=== PATIENT | male | born 1980 | race Caucasian/White ===

== ENCOUNTER 2021-03-26 16:12 | Emergency (ER) | payer BC, SELFPAY ==
[2021-03-26 16:13] VITALS: BP 153/117; PULSE 96; RESP 16; TEMP 36.6; O2SAT 94; BMI 23.8
[2021-03-26 17:29] VITALS: BMI 23.8
[2021-03-26 17:33] VITALS: BP 153/100; PULSE 87; RESP 16; O2SAT 97
--- NOTE | 2021-03-26 17:38 | ED.RN ---
pt reports to this nurse that sx are intermittent. gets up and goes to work abor 4am and at about 6 he starts getting dizzy with tingling to his lilly legs and feet. 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 pt states im also an alcoholic. so I dont drink enough water
--- NOTE | 2021-03-26 17:44 | EKG12_ITS ---
Test Reason : Blood Pressure : / mmHG Vent. Rate : 078 BPM Atrial Rate : 078 BPM P-R Int : 140 ms QRS Dur : 084 ms QT Int : 402 ms P-R-T Axes : 036 032 058 degrees QTc Int : 458 ms Normal sinus rhythm Normal ECG Confirmed by DANIELA TOMPKINS, AFUA ([id number]), copy editor KATLIN WARE ([id number]) on 03/28/2021 1:56:56 PM Referred By: KIN Confirmed By:AFUA SUAREZ MD
--- NOTE | 2021-03-26 17:45 | EX.ED.DYSGE1 ---
HPI History of Present Illness Chief Complaint: Neuro S/Sx Informant: patient Narrative Narrative: Patient presents with multiple symptoms over the past approximately 7 days. He states that a week ago he got nasal congestion like a cold. He was blowing a lot of mucus from his nose. That lasted for about a day. The next day he noted that at work he would get somewhat lightheaded if he was standing up for more than about 2 or 3 hours. He would also get some tingling of his feet and occasionally legs up to mid gardner area. This was equal side to side. There is no weakness. He does have a slight cough but he is not producing any sputum. He is a smoker. This is not really new or different. He has no chest pain at any time. He has no hemoptysis. He also gets some soreness in his right upper flank area. He thinks this is due to his liver. This has been an ongoing issue. He has a long history of alcoholism. He drinks a 1.75 L wild [place] every 3 days. He actually already has an appointment to go into detox because he knows he needs help. He has had no recent travel surgery immobilization personal family history of DVT or PE. He has not had palpitations with this. Nothing consistently makes this better. It is worse if he stays standing for a long time. PFSH PFSH Medical History ETOH abuse Allergy/AdvReac Type Severity Reaction Status Date / Time No Known Allergies Allergy Verified 03/26/21 16:15 Surgical History no surgical history Social History Smoking Status: Current every day smoker tobacco type: cigarettes ROS ROS ED Constitutional Constitutional ED: Denies chills, fever(s), subjective or sweats Eyes Eyes: Denies blurry vision or change in vision ENT ENT ED: Reports other Details: Nasal congestion now resolved. See history of present illness. Cardiovascular Cardiovascular: Denies chest pain, palpitations or racing heartbeat Respiratory/Chest Respiratory/Chest: Reports cough; Denies dyspnea or sputum Gastrointestinal Gastrointestinal: Reports other Details: Patient has had no nausea vomiting diarrhea abdominal pain or blood in the stool. ; Denies abdominal pain, diarrhea, melena, nausea or vomiting Genitourinary Genitourinary ED: Denies dysuria Musculoskeletal Musculoskeletal: Reports other Details: Patient had a negative Covid test last week. ; Denies myalgias Integumentary Denies rash Neurologic Neurologic: Reports paresthesias; Denies headache(s) or weakness Psychiatric Psychiatric: Reports anxiety; Denies depression Endocrine Endocrinology: Denies polydipsia or polyuria Allergic/Immunologic Allergic/Immunologic ED: Denies mouth swelling, tongue swelling or urticaria EXAM Physical Exam Const Vital Signs: 03/26/21 16:13 03/26/21 17:33 03/26/21 20:25 Temperature 97.8 F Temperature Source Temporal Pulse Rate 96 87 70 Respiratory Rate 16 16 18 Blood Pressure 153/117 H 153/100 H Blood Pressure Mean 129 117 Pulse Ox 94 97 99 Oxygen Delivery Method Room Air Room Air Room Air Positive well nourished and well developed General Appearance ED: well developed and NAD; Negative for cyanotic or diaphoretic HEENT Reports TM's clear and dry mucous membranes HEENT Narrative: Mildly dry. TMs are clear. Minimal fluid behind the eardrums. But they are not red. Tympanic Membrane ED: Yes TM's clear Mouth ED: Yes dry mucous membranes Mouth: dry mucous membranes Eyes PERRL and EOMs intact bilaterally General Eye ED: Negative for scleral icterus Neck no JVD Chest Wall inspection of chest normal and palpation of chest normal Resp normal respiratory effort and clear to auscultation bilaterally Resp Narrative: No pain with deep breath. Lungs sound very clear. He is has no coughing while I am in the room. Effort and Inspection: Negative for pain with movement Auscultation: Negative for rales, rhonchi or wheezes Cardio regular rate and regular rhythm GI normal to inspection, nondistended, normoactive bowel sounds and non-tender GI Narrative: He does complain of some pain toward the right upper quadrant at times. However, his abdomen is quite benign at this time. Palpation: soft Back/Spine no CVA tenderness General Back: CVA tenderness Extremity normal to inspection Extremity Narrative: No edema no cords no tenderness. General Extremety ED: Negative for edema or tenderness General Extremity: Negative for edema Neuro oriented x3 Sensorium / Orientation: alert Psych mental status grossly normal Skin no rashes or lesions noted MDM MDM MDM Narrative Medical decision making narrative: Chest x-ray showed no acute process. Patient's labs show normal CBC. Platelets are little bit low which could be due to the alcohol use. There is no reports of bleeding. Electrolytes show no marked abnormalities. LFTs show mild bump of AST and ALT.troponin is negative. Patient is feeling a bit better now. I think we can get him home. I think detox will be beneficial for him. He already has this set up as an outpatient. Lab Data Attestation: I reviewed the patient's lab results. Labs: Laboratory Results - last 24 hr 03/26/21 03/26/21 17:57 17:57 WBC 5.3 RBC 4.04 L Hgb 14.5 Hct 41.9 MCV 103.7 H MCH 35.9 H MCHC 34.6 RDW Std Deviation 52.3 H RDW Coeff of [place]ayne 13.4 Plt Count 78 L MPV 10.5 Immature Gran % (Auto) 0.600 Neut % (Auto) 45.3 L Lymph % (Auto) 43.3 H [place] % (Auto) 9.8 Eos % (Auto) 0.2 Baso % (Auto) 0.8 Absolute Neuts (auto) 2.4 Absolute Lymphs (auto) 2.30 Nucleated RBC % 0 Platelet Estimate MOD DEC RBC Morphology N CHROM Anisocytosis 1+ Macrocytosis 1+ Sodium 139 Potassium 4.2 Chloride 101 Carbon Dioxide 26.0 Anion Gap 12 BUN 7 Creatinine 0.47 L Estim Creat Clear Calc 229.31 Est GFR (MDRD) Af Amer 255 Est GFR (MDRD) Non-Af 211 BUN/Creatinine Ratio 15.0 Glucose 85 Calcium 9.4 Total Bilirubin 0.80 AST 121 H ALT 112 H Alkaline Phosphatase 87 Troponin I High Sens 8 Total Protein 7.4 Albumin 3.9 Globulin 3.5 Albumin/Globulin Ratio 1.1 Radiography Diagnostic Testing: Clinical Impression(s) from Imaging Studies Chest X-Ray 03/26/21 18:00 IMPRESSION: Normal x-ray examination of the chest. Electronically Signed: Markie Thompson MD at 18:43 EST , Service support , EKG Initial EKG: Comments: EKG done for overall weakness after standing. EKG read by me shows normal sinus rhythm. There is a lot of baseline variation but no evidence of ST elevation or depression. No ectopy. AR interval, QRS duration and QTc are normal. Discharge Plan Triage Chief Complaint: Neuro S/Sx ED Provider: Listerman,Peter Dx/Rx/DC Orders Clinical Impression: Bilateral leg paresthesia, Generalized weakness Instructions: ED Paraesthesias Primary Care Provider: Care Physician,No Primary Referrals: Dina Mariee DO [STAFF PHYSICIAN] - 3-5 Days Care Physician,No Primary [Primary Care Provider] - Disposition Disposition: Home, Self Care
[2021-03-26] MEDS: 0.9% Normal Saline 1,000 ML 1000 ML IV (18:00)
--- NOTE | 2021-03-26 18:00 | RAD_ITS ---
STUDY: X-RAY CHEST REASON FOR EXAM: Male, 40 years old. Fever and cough TECHNIQUE: Single AP portable view of the chest. COMPARISON: None. FINDINGS: EKG leads overlie the chest The lungs are clear and expanded. There is no demonstrated pleural abnormality. Normal size heart. Normal mediastinum and negrito. Normal visualized pulmonary arteries. Normal visualized aortic arch and descending thoracic aorta. Normal visualized thoracic spine. Normal visualized ribs, clavicles, and shoulders. There is no demonstrated abnormality of the visualized soft tissue structures of the upper abdomen. RAD/Chest 1 View (Portable) IMPRESSION: Normal x-ray examination of the chest. Electronically Signed: Markie Thompson MD at 18:43 EST , Service support ,
[2021-03-26 18:25] LABS: Absolute Neutrophil Count 2.4 X10^3/uL (2.0-7.7); Basophil# 0.04 X10^3/uL; Basophil% 0.8 % (0-1); Eosinophil# 0.01 X10^3/uL; Eosinophils% 0.2 % (0-5); Hematocrit 41.9 % (40-54); Hemoglobin 14.5 g/dL (13.0-16.5); Lymphocyte % 43.3 % (19-41); Mean Corp Hgb Conc 34.6 g/dL (32-36); Mean Corpuscular Hgb 35.9 pg (27.0-32.0); Mean Corpuscular Volume 103.7 fL (80-94); Mean Platelet Vol. 10.5 fl (6.2-12.0); Monocyte# 0.52 X10^3/uL; Monocyte% 9.8 % (0-10); NRBC Flagged by Analyzer 0 % (0-5); Neutrophil # 2.41 X10^3/uL (2.7-7.7); Neutrophil % 45.3 % (47-70); POSITIVE COUNT YES; Platelet Count 78 K/mm3 (150-450); RBC Distribution Width CV 13.4 % (11.6-14.6); RBC Distribution Width SD 52.3 fl (35.1-43.9); Red Blood Count 4.04 M/mm3 (4.6-6.2); White Blood Count 5.3 K/mm3 (4.4-11.0)
[2021-03-26 18:39] LABS: ALB/GLOB Ratio 1.1 RATIO (0.9-2.4); AST(SGOT) 121 U/L (15-37); Alanine Aminotransfer ALT/SGPT 112 U/L (16-61); Albumin, Serum 3.9 g/dL (3.2-5.0); Alkaline Phosphatase 87 U/L (45-117); Anion Gap 12 (5-15); BUN 7 mg/dL (7-18); Calcium,Total 9.4 mg/dL (8.5-10.1); Chloride 101 mmol/L (98-107); Creatinine, Serum 0.47 mg/dL (0.70-1.30); EST Glomerular Filtration Rate 211 mL/min (>60); Est Glom Filt Rate - Afr Amer 255 mL/min (>60); Estimated Creatinine Clearance 229.31 ml/min; Globulin 3.5 g/dL (2.2-4.2); Glucose 85 mg/dL (74-106); Potassium 4.2 mmol/L (3.5-5.1); Protein, Total 7.4 g/dL (6.4-8.2); Sodium Level 139 mmol/L (136-145); Troponin-I HS 8 pg/mL (3.0-78.0)
[2021-03-26 18:49] LABS: Differential Indicated SCAN CRITERIA MET
[2021-03-26 18:50] LABS: Anisocytosis 1+; Macrocytosis 1+; Platelet Estimate MOD DEC (ADEQ); Red Cell Morphology N CHROM NORMAL (NORM C&C)
[2021-03-26 20:25] VITALS: PULSE 70; RESP 18; O2SAT 99
== END 2021-03-26 21:18 | disposition home or self-care (01) ==
PROVIDERS: Emergency Provider Emergency Medicine
DX: R20.2 Paresthesia of skin (principal); R53.1 Weakness; F17.210 Nicotine dependence, cigarettes, uncomplicated
CPT/HCPCS: 71045; 80053; 84484; 85025; 93005; 96360; 96361; 99283; A4216

== ENCOUNTER 2022-03-26 20:44 | Emergency (ER) | payer BC, SELFPAY ==
[2022-03-26 20:45] VITALS: BP 144/104; PULSE 121; RESP 15; TEMP 36.7; O2SAT 96; BMI 22.5
--- NOTE | 2022-03-26 22:34 | ED.RN ---
an engorged tick was removed from pt neck. was informed and tick placed in sterile container. lashawn burton [id number]
[2022-03-26 22:48] LABS: Absolute Lymphocyte Count 2.11 X10^3/uL (0.83-4.51); Absolute Neutrophil Count 2.5 X10^3/uL (2.0-7.7); Basophil# 0.03 X10^3/uL; Basophil% 0.6 % (0-1); Eosinophil# 0.02 X10^3/uL; Eosinophils% 0.4 % (0-5); Hematocrit 42.7 % (40-54); Hemoglobin 14.9 g/dL (13.0-16.5); Lymphocyte # 2.11 X10^3/ul (0.83-4.51); Lymphocyte % 40.1 % (19-41); Mean Corp Hgb Conc 34.9 g/dL (32-36); Mean Corpuscular Hgb 35.8 pg (27.0-32.0); Mean Corpuscular Volume 102.6 fL (80-94); Mean Platelet Vol. 11.5 fl (6.2-12.0); Monocyte# 0.64 X10^3/uL; Monocyte% 12.2 % (0-10); NRBC Flagged by Analyzer 0 % (0-5); Neutrophil # 2.45 X10^3/uL (2.7-7.7); Neutrophil % 46.5 % (47-70); POSITIVE COUNT YES; RBC Distribution Width CV 12.9 % (11.6-14.6); RBC Distribution Width SD 49.1 fl (35.1-43.9); Red Blood Count 4.16 M/mm3 (4.6-6.2); White Blood Count 5.3 K/mm3 (4.4-11.0)
[2022-03-26 22:58] LABS: Mucous, Urine 0 SEEN /hpf (<or=2+); Red Blood Cells-Urine 0 SEEN /hpf (0-5); Squamous Epithelial Cells - UA 0 SEEN /hpf (0-5); White Blood Cells 0 SEEN /hpf (0-5)
[2022-03-26] MEDS: Ondansetron 4 MG/2 ML Vial IV (22:59)
[2022-03-26] MEDS: 0.9% Normal Saline 1,000 ML 1000 ML IV (22:59)
[2022-03-26 23:00] LABS: Platelet Count 40 K/mm3 (150-450)
[2022-03-26 23:01] LABS: Differential Indicated SCAN CRITERIA MET
[2022-03-26 23:04] LABS: Color, Urine Yellow (Yellow); Glucose, Dipstick Normal (Normal); Ketone-Dipstick 5 mg/dl (Negative); Leukocyte Esterase-Dipstick Negative /ul (Negative); Nitrite-Dipstick Negative (Negative); Occult Blood-Urine Negative /ul (Negative); Protein-Dipstick 15 mg/dl (Negative); Urine Bilirubin Dipstick Negative (Negative); Urine Clarity Clear (Clear); Urine Urobilinogen 1 mg/dl (Normal); Urine pH 6.5 (5.0 - 8.0)
[2022-03-26 23:06] LABS: ALB/GLOB Ratio 1.1 RATIO (0.9-2.4); AST(SGOT) 175 U/L (15-37); Alanine Aminotransfer ALT/SGPT 183 U/L (16-61); Albumin, Serum 3.9 g/dL (3.2-5.0); Alkaline Phosphatase 93 U/L (45-117); Anion Gap 9 (5-15); BUN 11 mg/dL (7-18); BUN/Creat Ratio 16.5 RATIO (10-20); Calcium,Total 8.9 mg/dL (8.5-10.1); Chloride 100 mmol/L (98-107); Creatinine, Serum 0.67 mg/dL (0.70-1.30); EST Glomerular Filtration Rate 139 mL/min (>60); Est Glom Filt Rate - Afr Amer 169 mL/min (>60); Estimated Creatinine Clearance 154.53 ml/min; Globulin 3.4 g/dL (2.2-4.2); Glucose 108 mg/dL (74-106); Lipase 313 U/L (73-393); Potassium 4.6 mmol/L (3.5-5.1); Protein, Total 7.3 g/dL (6.4-8.2); Sodium Level 139 mmol/L (136-145)
[2022-03-26 23:18] LABS: Differential Comment SCANNED
[2022-03-26 23:19] LABS: Bacteria 1+ /hpf (None Seen)
--- NOTE | 2022-03-27 00:01 | EDS_ITS ---
HPI History of Present Illness Chief Complaint: Nausea/Vomiting Informant: patient and parent Onset/Context/Timing Onset: Days Context: Gradual Onset Timing: Continuous Quality: Nausea and vomiting Location: Abdomen Worsened by: Nothing Relieved by: Nothing Narrative Narrative: Patient presents with nausea and vomiting for the past several days. Patient states that initially he was not able to keep anything down including fluids. Patient admits to drinking alcohol daily. Patient states he drinks 1.75 L of whiskey every 3 days. Patient states that few days ago he was unable to keep that down. Patient felt like he was going through withdrawal at that time. Bird kim states that he has been able to keep down alcohol over the last couple days. Patient denies any hematemesis or coffee-ground emesis. Patient denies any diarrhea, melena, or hematochezia. Patient denies any urinary complaints. Patient denies any abdominal pain. Mother states patient has been sleeping more lately. PFSH PFS Medical History ETOH abuse Smoker Allergy/AdvReac Type Severity Reaction Status Date / Time No Known Allergies Allergy Verified 03/26/22 20:50 Social History (Updated 03/27/22 @ 00:[address] Nathan Anderson, DO) Smoking Status: Current every day smoker tobacco type: cigarettes alcohol intake: current alcohol intake frequency: 3 or more drinks per day Alcohol type: hard liquor details: 1.75 L of whiskey every 3 days ROS ROS ED Constitutional Constitutional ED: Denies chills or fever(s) Eyes Eyes: Denies blurry vision or change in vision ENT ENT ED: Denies rhinorrhea or sore throat Cardiovascular Cardiovascular: Denies chest pain or palpitations Respiratory/Chest Respiratory/Chest: Reports cough and sputum; Denies dyspnea Gastrointestinal Gastrointestinal: Reports nausea and vomiting Genitourinary Genitourinary ED: Denies dysuria or hematuria Musculoskeletal Musculoskeletal: Reports back pain and neck pain Integumentary Denies abscess or rash Neurologic Neurologic: Denies headache(s) or weakness Allergic/Immunologic Allergic/Immunologic ED: Denies mouth swelling or urticaria EXAM Physical Exam Const Vital Signs: 03/26/22 20:45 Temperature 98.1 F Temperature Source Temporal Pulse Rate 121 H Respiratory Rate 15 Blood Pressure 144/104 H Blood Pressure Mean 117 Pulse Ox 96 Oxygen Delivery Method Room Air Positive well nourished and well developed General Appearance ED: well developed and NAD HEENT Reports moist mucous membranes Neck supple and no JVD Resp normal respiratory effort and clear to auscultation bilaterally Cardio regular rate, regular rhythm and no murmurs GI normal to inspection, nondistended, normoactive bowel sounds and non-tender Palpation: soft Extremity normal to inspection General Extremety ED: Negative for edema or tenderness General Extremity: Negative for edema Neuro oriented x3, CN's II-XII intact bilaterally and no sensory deficits noted Sensorium / Orientation: alert Motor Exam: strength 5/5 throughout Psych mental status grossly normal Skin no rashes or lesions noted Skin Narrative: There is a tick noted on the anterior neck. This was easily removed with forceps. There is no rash noted. There is no erythema. MDM MDM MDM Narrative Medical decision making narrative: Patient was given IV fluids and Zofran here. CBC shows a thrombocytopenia of 40. Comprehensive metabolic profile was within normal limits. Lipase was normal. Serum alcohol level was elevated at 365. Urinalysis does not show any evidence of urinary tract infection or hematuria. Patient feels better on reevaluation. Patient was advised of his findings. Patient does not want alcohol detox at this time. Patient was instructed return if he wants alcohol detox. Patient was instructed to follow-up with his primary care physician in 3 to 5 days. Patient was instructed to return if worse in any way. Patient understood and was agreeable with the plan. All questions were answered. Lab Data Attestation: I reviewed the patient's lab results. Labs: Laboratory Results - last 24 hr 03/26/22 03/26/22 03/26/22 22:40 22:40 22:40 WBC 5.3 RBC 4.16 L Hgb 14.9 Hct 42.7 MCV 102.6 H MCH 35.8 H MCHC 34.9 RDW Std Deviation 49.1 H RDW Coeff of [place]ayne 12.9 Plt Count 40 L* MPV 11.5 Immature Gran % (Auto) 0.200 Neut % (Auto) 46.5 L Lymph % (Auto) 40.1 [place] % (Auto) 12.2 H Eos % (Auto) 0.4 Baso % (Auto) 0.6 Absolute Neuts (auto) 2.5 Absolute Lymphs (auto) 2.11 Nucleated RBC % 0 Differential Comment SCANNED Diff Path Review May foll Sodium 139 Potassium 4.6 Chloride 100 Carbon Dioxide 30.0 Anion Gap 9 BUN 11 Creatinine 0.67 L Estim Creat Clear Calc 154.53 Est GFR (MDRD) Af Amer 169 Est GFR (MDRD) Non-Af 139 BUN/Creatinine Ratio 16.5 Glucose 108 H Calcium 8.9 Total Bilirubin 0.60 AST 175 H ALT 183 H Alkaline Phosphatase 93 Total Protein 7.3 Albumin 3.9 Globulin 3.4 Albumin/Globulin Ratio 1.1 Lipase 313 Urine Color Urine Clarity Urine pH Ur Specific [place] Urine Protein Urine Glucose (UA) Urine Ketones Urine Occult Blood Urine Nitrite Urine Bilirubin Urine Urobilinogen Ur Leukocyte Esterase Urine RBC Urine WBC Ur Squamous Epith Cells Urine Bacteria Urine Mucus Ethyl Alcohol 365.0 H* 03/26/22 22:54 WBC RBC Hgb Hct MCV MCH MCHC RDW Std Deviation RDW Coeff of Blayne Plt Count MPV Immature Gran % (Auto) Neut % (Auto) Lymph % (Auto) [place] % (Auto) Eos % (Auto) Baso % (Auto) Absolute Neuts (auto) Absolute Lymphs (auto) Nucleated RBC % Differential Comment Diff Path Review Sodium Potassium Chloride Carbon Dioxide Anion Gap BUN Creatinine Estim Creat Clear Calc Est GFR (MDRD) Af Amer Est GFR (MDRD) Non-Af BUN/Creatinine Ratio Glucose Calcium Total Bilirubin AST ALT Alkaline Phosphatase Total Protein Albumin Globulin Albumin/Globulin Ratio Lipase Urine Color Yellow Urine Clarity Clear Urine pH 6.5 Ur Specific [place] 1.010 Urine Protein 15 H Urine Glucose (UA) Normal Urine Ketones 5 H Urine Occult Blood Negative Urine Nitrite Negative Urine Bilirubin Negative Urine Urobilinogen 1 H Ur Leukocyte Esterase Negative Urine RBC 0 SEEN Urine WBC 0 SEEN Ur Squamous Epith Cells 0 SEEN Urine Bacteria 1+ Urine Mucus 0 SEEN Ethyl Alcohol Discharge Plan Triage Chief Complaint: Nausea/Vomiting ED Provider: Nathan Anderson Dx/Rx/DC Orders Clinical Impression: Alcohol intoxication, Nausea and vomiting, Thrombocytopenia Instructions: ED Alcohol Intoxication, ED Vomiting (Adult) Primary Care Provider: Care Physician,No Primary Referrals: Tosha Michelle MD [Med Staff - [facility]] - 3-5 Days Care Physician,No Primary [Primary Care Provider] - [facility] [Non-Staff] - As Needed Disposition Disposition: Home, Self Care
[2022-03-27 00:18] VITALS: BP 119/75; PULSE 86; RESP 15; O2SAT 95
[2022-03-27 13:03] LABS: Pathologist Review Reviewed
== END 2022-03-27 00:38 | disposition home or self-care (01) ==
PROVIDERS: Emergency Provider Emergency Medicine; Visit Provider Emergency Medicine
DX: R11.2 Nausea with vomiting, unspecified (principal); F10.129 Alcohol abuse with intoxication, unspecified; D69.6 Thrombocytopenia, unspecified; F17.210 Nicotine dependence, cigarettes, uncomplicated
CPT/HCPCS: 80053; 81001; 82077; 83690; 85025; 96361; 96374; 99283; J7030; A4216; J2405

== ENCOUNTER 2022-03-31 15:01 | Inpatient (IN) | payer BC, SELFPAY ==
[2022-03-31 15:02] VITALS: BP 152/109; PULSE 112; RESP 18; TEMP 36.1; O2SAT 96; BMI 22.5
--- NOTE | 2022-03-31 15:18 | EX.ED.DYSGE1 ---
HPI History of Present Illness Chief Complaint: ETOH Intox Informant: patient and parent Narrative Narrative: Patient has been drinking for many years. He drinks a handle of 101 proof wild [place] every 2 to 3 days. He starts shaking probably 6 to 8 hours at the least after his last drink. He denies ever having a seizure. He has not been having nausea and vomiting. He last drank about 1 to 2 hours before coming in. He states he went through detox at home about a year ago but has never been in a detox program. He has never been in a 12-step program. He does not use drugs. He does smoke cigarettes. When he withdraws, he starts with shakes in the hands that move up the arms. He then gets shakes in his neck into his whole body. He has always started drinking again at that point. He states he wants to go through detox because he knows this is hurting him. He denies any specific legal occurrences that have pushed him to this. He denies any medical problems or medications. I do note that on recent labs he had thrombocytopenia which is likely from marrow suppression from the alcohol. PFSH PFS Medical History ETOH abuse Smoker Allergy/AdvReac Type Severity Reaction Status Date / Time No Known Allergies Allergy Verified 03/31/22 15:05 Social History Smoking Status: Current every day smoker tobacco type: cigarettes alcohol intake: current alcohol intake frequency: 3 or more drinks per day Alcohol type: hard liquor details: 1.75 L of whiskey every 3 days ROS ROS ED Constitutional Constitutional ED: Denies fever(s) or subjective Eyes Eyes: Denies change in vision ENT ENT ED: Denies rhinorrhea Cardiovascular Cardiovascular: Denies chest pain or palpitations Respiratory/Chest Respiratory/Chest: Denies cough Gastrointestinal Gastrointestinal: Denies abdominal pain, diarrhea, melena, nausea or vomiting Genitourinary Genitourinary ED: Denies hematuria Musculoskeletal Musculoskeletal: Denies myalgias Integumentary Denies rash Neurologic Neurologic: Reports other Details: Denies any withdrawal symptoms at this time. ; Denies headache(s), paresthesias or weakness Endocrine Endocrinology: Denies polydipsia or polyuria Hematologic/Lymphatic Hematologic/Lymphatic: Denies easy bleeding or easy bruising Allergic/Immunologic Allergic/Immunologic ED: Denies urticaria EXAM Physical Exam Const Vital Signs: 03/31/22 15:02 03/31/22 15:35 Temperature 97 F L 97.8 F Temperature Source Temporal Temporal Pulse Rate 112 H 90 Respiratory Rate 18 14 Blood Pressure 152/109 H Blood Pressure Mean 123 Pulse Ox 96 99 Oxygen Delivery Method Room Air Room Air Positive well nourished and well developed General Appearance ED: well developed and NAD; Negative for cyanotic or diaphoretic HEENT Reports moist mucous membranes Eyes General Eye ED: Negative for scleral icterus Neck no JVD Resp normal respiratory effort and clear to auscultation bilaterally Auscultation: Negative for rhonchi or wheezes Cardio regular rhythm Rate: tachycardic GI normal to inspection, nondistended, normoactive bowel sounds and non-tender GI Narrative: I do not feel an enlarged or tender liver. Back/Spine no CVA tenderness Neuro oriented x3 Neuro Narrative: Patient does have slight slurred voice and appears to be slightly intoxicated. But he is ANO x3. He is a pretty good informant for details. Psych Attitude: No agitated Mood & Affect: Negative for depressed, anxious or tearful Skin no rashes or lesions noted MDM MDM MDM Narrative Medical decision making narrative: Patient's labs show normal hemoglobin. White count is toward the lower end but still within normal. Platelets are low at 43,000 but he has had this before. This is likely marrow suppression from alcohol use. INR is normal. Liver function test show mild elevation of AST and ALT which is expected. Electrolytes are overall normal. Alcohol level is pending but I expect this to be significantly elevated. I discussed case with hospitalist and patient will be admitted. Lab Data Attestation: I reviewed the patient's lab results. Labs: Laboratory Results - last 24 hr 03/31/22 03/31/22 03/31/22 15:27 15:27 15:27 WBC 4.9 RBC 3.95 L Hgb 14.4 Hct 41.1 MCV 104.1 H MCH 36.5 H MCHC 35.0 RDW Std Deviation 50.6 H RDW Coeff of [place]ay[place] 13.1 Plt Count 43 L* MPV 10.4 Immature Gran % (Auto) 0.200 Neut % (Auto) 44.0 L Lymph % (Auto) 42.1 H [place] % (Auto) 12.1 H Eos % (Auto) 0.6 Baso % (Auto) 1.0 Absolute Neuts (auto) 2.2 Absolute Lymphs (auto) 2.06 Nucleated RBC % 0 PT 12.2 INR 0.9 Sodium 142 Potassium 4.1 Chloride 107 Carbon Dioxide 27.0 Anion Gap 8 BUN 6 L Creatinine 0.53 L Estim Creat Clear Calc 195.34 Est GFR (MDRD) Af Amer 218 Est GFR (MDRD) Non-Af 180 BUN/Creatinine Ratio 11.2 Glucose 112 H Calcium 8.7 Total Bilirubin 0.60 AST 151 H ALT 159 H Alkaline Phosphatase 85 Total Protein 7.1 Albumin 3.9 Globulin 3.2 Albumin/Globulin Ratio 1.2 Discharge Plan Triage Chief Complaint: ETOH Intox ED Provider: Keaton Calzada Dx/Rx/DC Orders Clinical Impression: Admitted to alcohol detoxification center, Alcohol intoxication, Thrombocytopenia Primary Care Provider: Care Physician,No Primary Referrals: Care Physician,No Primary [Primary Care Provider] - Disposition Disposition: Acute Care [facility]
[2022-03-31 15:35] VITALS: PULSE 90; RESP 14; TEMP 36.6; O2SAT 99
[2022-03-31 15:40] LABS: Absolute Lymphocyte Count 2.06 X10^3/uL (0.83-4.51); Absolute Neutrophil Count 2.2 X10^3/uL (2.0-7.7); Basophil# 0.05 X10^3/uL; Eosinophil# 0.03 X10^3/uL; Eosinophils% 0.6 % (0-5); Hematocrit 41.1 % (40-54); Hemoglobin 14.4 g/dL (13.0-16.5); Lymphocyte # 2.06 X10^3/ul (0.83-4.51); Lymphocyte % 42.1 % (19-41); Mean Corpuscular Hgb 36.5 pg (27.0-32.0); Mean Corpuscular Volume 104.1 fL (80-94); Mean Platelet Vol. 10.4 fl (6.2-12.0); Monocyte# 0.59 X10^3/uL; Monocyte% 12.1 % (0-10); NRBC Flagged by Analyzer 0 % (0-5); Neutrophil # 2.15 X10^3/uL (2.7-7.7); POSITIVE COUNT YES; RBC Distribution Width CV 13.1 % (11.6-14.6); RBC Distribution Width SD 50.6 fl (35.1-43.9); Red Blood Count 3.95 M/mm3 (4.6-6.2); White Blood Count 4.9 K/mm3 (4.4-11.0)
[2022-03-31 16:04] LABS: ALB/GLOB Ratio 1.2 RATIO (0.9-2.4); AST(SGOT) 151 U/L (15-37); Alanine Aminotransfer ALT/SGPT 159 U/L (16-61); Albumin, Serum 3.9 g/dL (3.2-5.0); Alkaline Phosphatase 85 U/L (45-117); Anion Gap 8 (5-15); BUN 6 mg/dL (7-18); BUN/Creat Ratio 11.2 RATIO (10-20); Calcium,Total 8.7 mg/dL (8.5-10.1); Chloride 107 mmol/L (98-107); Creatinine, Serum 0.53 mg/dL (0.70-1.30); EST Glomerular Filtration Rate 180 mL/min (>60); Est Glom Filt Rate - Afr Amer 218 mL/min (>60); Estimated Creatinine Clearance 195.34 ml/min; Globulin 3.2 g/dL (2.2-4.2); Glucose 112 mg/dL (74-106); Potassium 4.1 mmol/L (3.5-5.1); Protein, Total 7.1 g/dL (6.4-8.2); Sodium Level 142 mmol/L (136-145)
[2022-03-31 16:06] LABS: Differential Indicated SCAN CRITERIA MET; Platelet Count 43 K/mm3 (150-450)
[2022-03-31 16:11] LABS: International Normalized Ratio 0.9; Prothrombin Time (Protime)PT. 12.2 SECONDS (11.7-14.9)
--- NOTE | 2022-03-31 16:25 | NURSING ---
MED SURG JOPPERI ALCOHOL DETOX
[2022-03-31 16:28] LABS: Differential Comment SCANNED; Platelet Estimate MKD DEC (ADEQ)
--- NOTE | 2022-03-31 16:39 | HP.PCM.HOS_ITS ---
HPI - General General Date of Service: 03/31/22 Chief Complaint: Alcohol withdrawal HPI Narrative EVARISTO KING, is a 41 M who presents voluntarily seeking treatment for alcohol withdrawal. Patient's last drink was at 1430 today. Patient drinks a handle whiskey every 2 to 3 days. Since his last drink today, he has been having some tremulousness. Patient did try quitting on his own 1 time few years ago and he had nausea vomiting and diffuse tremors. Patient is not established with any addiction program nor is he reached out to any addiction program prior to coming here. Patient had lab work in the emergency room that showed platelets of 43,000. He does have easy bruising. [facility] Medical History ETOH abuse Smoker Allergy/AdvReac Type Severity Reaction Status Date / Time No Known Allergies Allergy Verified 03/31/22 15:05 Social History Smoking Status: Current every day smoker tobacco type: cigarettes alcohol intake: current alcohol intake frequency: 3 or more drinks per day Alcohol type: hard liquor details: 1.75 L of whiskey every 3 days ROS ROS Narrative All review of systems were negative except as mentioned above in the history of present illness and the other review of systems. Vital Signs Vital Signs Vital Signs: 03/31/22 15:02 03/31/22 15:35 Temperature 36.1 C L 36.6 C Temperature Source Temporal Temporal Pulse Rate 112 H 90 Respiratory Rate 18 14 Blood Pressure 152/109 H Blood Pressure Mean 123 Pulse Ox 96 99 Oxygen Delivery Method Room Air Room Air Weight Weight: 75.296 kg Body Mass Index (BMI) 22.5 Physical Exam Const alert and no apparent distress Constitutional Narrative: Appears older than stated age Resp normal respiratory effort, no retractions, no use of accessory muscles and clear to auscultation bilaterally Cardio regular rate, regular rhythm, S1 normal heart sound and S2 normal heart sound GI normal to inspection, nondistended, normoactive bowel sounds, soft to palpation, non-tender and non-distended Extremity normal to inspection Results Lab / Micro Data Result Diagrams: 03/31/22 15:27 03/31/22 15:27 Labs: Laboratory Results - last 24 hr 03/31/22 15:27: WBC 4.9, RBC 3.95 L, Hgb 14.4, Hct 41.1, MCV 104.1 H, MCH 36.5 H , MCHC 35.0, RDW Std Deviation 50.6 H, RDW Coeff of Blayne 13.1, Plt Count 43 L*, MPV 10.4, Immature Gran % (Auto) 0.200, Neut % (Auto) 44.0 L, Lymph % (Auto) 42.1 H, [place] % (Auto) 12.1 H, Eos % (Auto) 0.6, Baso % (Auto) 1.0, Absolute Neuts (auto) 2.2, Absolute Lymphs (auto) 2.06, Nucleated RBC % 0, Differential Comment SCANNED, Diff Path Review August jessica, Platelet Estimate MKD 03/31/22 15:27: PT 12.2, INR 0.9 03/31/22 15:27: Sodium 142, Potassium 4.1, Chloride 107, Carbon Dioxide 27.0, Anion Gap 8, BUN 6 L, Creatinine 0.53 L, Estim Creat Clear Calc 195.34, Est GFR (MDRD) Af Amer 218, Est GFR (MDRD) Non-Af 180, BUN/Creatinine Ratio 11.2, Glucose 112 H, Calcium 8.7, Total Bilirubin 0.60, AST 151 H, ALT 159 H, Alkaline Phosphatase 85, Total Protein 7.1, Albumin 3.9, Globulin 3.2, Albumin/Globulin Ratio 1.2 Assessment & Plan Assessment/Plan (1) Alcohol withdrawal: PLAN: Will initiate phenobarbital taper Additional medications help with other somatic complaints while he is here with his withdrawal. Thiamine and folate Addiction medicine to see and to facilitate outpatient program. It may be due to his intoxication, but patient did not seem readily engaged into discussing ownership of his medical care moving forward. If patient generally is not interested in taking ownership then the likelihood of success of his withdrawal will be impeded. Patient is here with his mother and father. I did tell the mall that given the large quantity of alcohol that he does drink, his relatively quick onset of withdrawal symptoms within 2 hours of his last drink, he may be at high risk of severe withdrawal and delirium tremens. Told him if he does experience that that he may require going to the ICU and being on different medications. (2) Thrombocytopenia: PLAN: This is a known entity least from March of last year where of 78,000. This [place]? be followed up as outpatient. I did discussed with the patient that he may need to follow-up with specialists including gastroenterology or hematology but also he will need to follow with the PCP. Patient seemed rather dismissive of these recommendations, once again he is intoxicated. PLAN: Plan VTE prophylaxis: Low risk and not indicated this time. Charges/Coding Visit Charges Inpatient E&M: 32870 Init Hosp L2
[2022-03-31 18:01] VITALS: BMI 22.5
--- NOTE | 2022-03-31 18:08 | ED.RN ---
pt dispo to [facility]. intention not able to be added to worklist. bp158/90. hr 97. rr 16. unable to completed a med list. parent updated on care. detox assessment remains unchanged from [facility].
[2022-03-31] MEDS: Phenobarbital 32.4 MG Tablet 64.8 MG PO ×2 (18:23→22:24)
[2022-03-31 18:43] VITALS: BP 138/97; PULSE 92; RESP 18; TEMP 36.9; O2SAT 97
[2022-03-31 22:17] VITALS: BP 134/96; PULSE 88; RESP 18; TEMP 37; O2SAT 96
[2022-03-31] MEDS: 0.9% Saline Lock 10 ML Syringe IV (22:23)
[2022-03-31] MEDS: traZODone 100 MG Tablet PO (22:24)
[2022-04-01 02:21] VITALS: BP 153/94; PULSE 92; RESP 18; TEMP 36.9; O2SAT 97
[2022-04-01] MEDS: Phenobarbital 32.4 MG Tablet 64.8 MG PO ×6 (02:22→22:36)
[2022-04-01] MEDS: Gabapentin 300 MG Capsule PO ×2 (02:27→23:50)
[2022-04-01] MEDS: Dicyclomine 10 MG Capsule 20 MG PO (02:27)
[2022-04-01 05:16] VITALS: BP 141/92; PULSE 94; RESP 18; TEMP 37.3; O2SAT 98
[2022-04-01] MEDS: hydrOXYzine PAM 25 MG Capsule 50 MG PO (05:17)
[2022-04-01 07:29] VITALS: BP 147/91; PULSE 93; RESP 16; TEMP 37.2; O2SAT 98
[2022-04-01] MEDS: Thiamine Hydrochloride 100 MG Tablet PO (08:29)
[2022-04-01] MEDS: Folic Acid 1 MG Tablet PO (08:30)
[2022-04-01 08:36] LABS: Absolute Lymphocyte Count 1.03 X10^3/uL (0.83-4.51); Absolute Neutrophil Count 2.5 X10^3/uL (2.0-7.7); Basophil# 0.03 X10^3/uL; Basophil% 0.7 % (0-1); Eosinophil# 0.04 X10^3/uL; Hematocrit 35.4 % (40-54); Hemoglobin 12.1 g/dL (13.0-16.5); Lymphocyte # 1.03 X10^3/ul (0.83-4.51); Lymphocyte % 25.7 % (19-41); Mean Corp Hgb Conc 34.2 g/dL (32-36); Mean Corpuscular Hgb 35.2 pg (27.0-32.0); Mean Corpuscular Volume 102.9 fL (80-94); Mean Platelet Vol. 11.3 fl (6.2-12.0); Monocyte# 0.44 X10^3/uL; NRBC Flagged by Analyzer 0 % (0-5); Neutrophil # 2.46 X10^3/uL (2.7-7.7); Neutrophil % 61.4 % (47-70); POSITIVE COUNT YES; RBC Distribution Width SD 48.6 fl (35.1-43.9); Red Blood Count 3.44 M/mm3 (4.6-6.2)
[2022-04-01 08:39] LABS: Differential Indicated SCAN CRITERIA MET
[2022-04-01 08:41] LABS: Platelet Count 35 K/mm3 (150-450)
[2022-04-01 09:14] LABS: Differential Comment SCANNED
[2022-04-01 11:20] VITALS: BP 134/99; PULSE 84; RESP 16; TEMP 37.6; O2SAT 99
--- NOTE | 2022-04-01 13:43 | ADDICTION ---
This senior copywriter met with PT to conduct ASAM, MSE, AUDIT, DUDIT assessments and to plan for d/c. PT A+Ox4 and participated actively. All assessments completed and placed in PT's chart. PT plans to f/u with counseling services and AA meetings. PT did not indicate a need for transportation post d/c from [facility].
[2022-04-01 14:00] VITALS: BP 139/92; PULSE 89; RESP 16; TEMP 37.7; O2SAT 100
--- NOTE | 2022-04-01 14:45 | PN.HOSP_ITS ---
Subjective Subjective Patient seen and examined. He had no active complaints. He did admit to some tremors of his extremities. Review of systems is otherwise negative. Objective Data Objective Data Vital Signs: Vital Signs Temp Pulse Resp BP Pulse Ox O2 Del Method 99.8 F H 89 16 139/92 H 100 Room Air 04/01/22 14:00 04/01/22 14:00 04/01/22 14:00 04/01/22 14:00 04/01/22 14:00 04/01/22 14:00 Oxygen Delivery Method Room Air Weight: 166 lb 4 oz Body Mass Index (BMI) 22.5 Intake & Output: Intake and Output for Last 24 Hours 03/30/22 03/31/22 04/01/22 23:59 23:59 23:59 Intake Total 400 / 400 850 / 850 Balance 400 / 400 850 / 850 Lab / Micro Data Result Diagrams: 04/01/22 08:22 03/31/22 15:27 Labs: Laboratory Results - last 24 hr 03/31/22 15:27: WBC 4.9, RBC 3.95 L, Hgb 14.4, Hct 41.1, MCV 104.1 H, MCH 36.5 H , MCHC 35.0, RDW Std Deviation 50.6 H, RDW Coeff of Blayne 13.1, Plt Count 43 L*, MPV 10.4, Immature Gran % (Auto) 0.200, Neut % (Auto) 44.0 L, Lymph % (Auto) 42.1 H, [place] % (Auto) 12.1 H, Eos % (Auto) 0.6, Baso % (Auto) 1.0, Absolute Neuts (auto) 2.2, Absolute Lymphs (auto) 2.06, Nucleated RBC % 0, Differential Comment SCANNED, Diff Path Review August foll, Platelet Estimate MKD 03/31/22 15:27: PT 12.2, INR 0.9 03/31/22 15:27: Sodium 142, Potassium 4.1, Chloride 107, Carbon Dioxide 27.0, Anion Gap 8, BUN 6 L, Creatinine 0.53 L, Estim Creat Clear Calc 195.34, Est GFR (MDRD) Af Amer 218, Est GFR (MDRD) Non-Af 180, BUN/Creatinine Ratio 11.2, Glucose 112 H, Calcium 8.7, Total Bilirubin 0.60, AST 151 H, ALT 159 H, Alkaline Phosphatase 85, Total Protein 7.1, Albumin 3.9, Globulin 3.2, Albumin/Globulin Ratio 1.2 03/31/22 15:27: Ethyl Alcohol 458.0 H* 04/01/22 08:22: WBC 4.0 L, RBC 3.44 L, Hgb 12.1 L, Hct 35.4 L, MCV 102.9 H, MCH 35.2 H, MCHC 34.2, RDW Std Deviation 48.6 H, RDW Coeff of Blayne 13.0, Plt Count 35 L*, MPV 11.3, Immature Gran % (Auto) 0.200, Neut % (Auto) 61.4, Lymph % (Auto) 25.7, [place] % (Auto) 11.0 H, Eos % (Auto) 1.0, Baso % (Auto) 0.7, Absolute Neuts (auto) 2.5, Absolute Lymphs (auto) 1.03, Nucleated RBC % 0, Differential Comment SCANNED, Diff Path Review August Physical Exam Const alert, oriented x3 and no apparent distress HEENT head/scalp atraumatic, moist oral mucous membranes and oropharynx normal Mouth: oral and palatal mucosa normal Eyes PERRL, EOMs intact bilaterally and conjunctivae normal Neck no lymphadenopathy, supple and no JVD Resp normal respiratory effort, no retractions, no use of accessory muscles and clear to auscultation bilaterally Cardio regular rate, regular rhythm, S1 normal heart sound, S2 normal heart sound and no murmurs GI normal to inspection, nondistended, normoactive bowel sounds, soft to palpation, non-tender and non-distended Extremity normal to inspection, full ROM and no clubbing, cyanosis or edema Neuro oriented x3, CN's II-XII intact bilaterally, moves all extremities and no focal motor deficits Neuro Narrative: tremors of UEs Sensorium / Orientation: awake and alert Motor Exam: strength 5/5 throughout Psych affect normal Assessment & Plan Assessment/Plan (1) Alcohol withdrawal: (2) Alcohol intoxication: (3) Thrombocytopenia: PLAN: Plan #Acute alcohol withdrawal * on alcohol withdrawal protocol with phenobarbital * monitor CIWA score * supportive meds for symptomatic relief * on thiamine, folic acid and multivites * #Pancytopenia * wbc is 4, with Hb of 12.1 and platelets which are down to 35 today * likely due to chronic alcohol use * platelets are down to 35 from 40 yesterday. Monitor closely. Was 71 on on 03/26/2021 and has trended downwards slowly * #Elevated liver enzymes * liver enzymes are chronically elevated. DVT prophylaxis: SCDs Charges/Coding Visit Charges Inpatient E&M: 75133 Subs Hosp L2
[2022-04-01 22:32] VITALS: BP 132/87; PULSE 95; RESP 18; TEMP 37.6; O2SAT 99
[2022-04-01] MEDS: 0.9% Saline Lock 10 ML Syringe IV (22:36)
[2022-04-01] MEDS: traZODone 100 MG Tablet PO (23:50)
[2022-04-02 02:20] VITALS: BP 130/96; PULSE 91; RESP 18; TEMP 37.1; O2SAT 99
[2022-04-02] MEDS: Phenobarbital 32.4 MG Tablet 64.8 MG PO ×6 (02:22→20:04)
[2022-04-02] MEDS: hydrOXYzine PAM 25 MG Capsule 50 MG PO ×2 (02:24→20:03)
[2022-04-02 06:55] LABS: Absolute Lymphocyte Count 1.36 X10^3/uL (0.83-4.51); Absolute Neutrophil Count 3.2 X10^3/uL (2.0-7.7); Basophil# 0.02 X10^3/uL; Basophil% 0.4 % (0-1); Eosinophil# 0.06 X10^3/uL; Eosinophils% 1.1 % (0-5); Hematocrit 37.7 % (40-54); Hemoglobin 12.7 g/dL (13.0-16.5); Lymphocyte # 1.36 X10^3/ul (0.83-4.51); Lymphocyte % 25.9 % (19-41); Mean Corp Hgb Conc 33.7 g/dL (32-36); Mean Corpuscular Hgb 35.3 pg (27.0-32.0); Mean Corpuscular Volume 104.7 fL (80-94); Mean Platelet Vol. 11.8 fl (6.2-12.0); Monocyte# 0.63 X10^3/uL; NRBC Flagged by Analyzer 0 % (0-5); Neutrophil # 3.17 X10^3/uL (2.7-7.7); Neutrophil % 60.2 % (47-70); POSITIVE COUNT YES; Platelet Count 39 K/mm3 (150-450); RBC Distribution Width CV 12.6 % (11.6-14.6); RBC Distribution Width SD 49.2 fl (35.1-43.9); White Blood Count 5.3 K/mm3 (4.4-11.0)
[2022-04-02 06:58] LABS: Differential Indicated SCAN CRITERIA MET
[2022-04-02 07:09] LABS: Macrocytosis 2+
[2022-04-02 07:10] LABS: Atypical Lymphocyte 1+ %; Platelet Estimate MKD DEC (ADEQ)
[2022-04-02 07:18] LABS: Anion Gap 6 (5-15); BUN 7 mg/dL (7-18); BUN/Creat Ratio 12.1 RATIO (10-20); Chloride 104 mmol/L (98-107); Creatinine, Serum 0.58 mg/dL (0.70-1.30); EST Glomerular Filtration Rate 164 mL/min (>60); Est Glom Filt Rate - Afr Amer 198 mL/min (>60); Estimated Creatinine Clearance 178.77 ml/min; Glucose 86 mg/dL (74-106); Potassium 4.3 mmol/L (3.5-5.1); Sodium Level 135 mmol/L (136-145)
[2022-04-02 07:49] VITALS: BP 121/86; PULSE 88; RESP 16; TEMP 37; O2SAT 99
[2022-04-02] MEDS: Thiamine Hydrochloride 100 MG Tablet PO (08:39)
[2022-04-02] MEDS: Folic Acid 1 MG Tablet PO (08:39)
[2022-04-02 12:36] VITALS: BP 124/74; PULSE 94; RESP 16; TEMP 37.1; O2SAT 99
[2022-04-02 12:39] LABS: Pathologist Review Reviewed
[2022-04-02 12:42] LABS: Pathologist Review Reviewed
[2022-04-02 12:52] LABS: Pathologist Review Reviewed
[2022-04-02 14:00] VITALS: BP 129/90; PULSE 83; RESP 16; TEMP 36.9; O2SAT 100
--- NOTE | 2022-04-02 14:50 | PN.HOSP_ITS ---
Subjective Subjective Patient seen and examined. HE has no active complaints and had an uneventful night. His tremors are improving. Review of systems is otherwise negative. Objective Data Objective Data Vital Signs: Vital Signs Temp Pulse Resp BP Pulse Ox O2 Del Method 98.5 F 83 16 129/90 H 100 Room Air 04/02/22 14:00 04/02/22 14:00 04/02/22 14:00 04/02/22 14:00 04/02/22 14:00 04/02/22 14:00 Oxygen Delivery Method Room Air Weight: 166 lb 4 oz Body Mass Index (BMI) 22.5 Intake & Output: Intake and Output for Last 24 Hours 03/31/22 04/01/22 04/02/22 23:59 23:59 23:59 Intake Total 400 / 400 2250 / 2250 1400 / 1400 Balance 400 / 400 2250 / 2250 1400 / 1400 Lab / Micro Data Result Diagrams: 04/02/22 06:25 04/02/22 06:25 Labs: Laboratory Results - last 24 hr 03/31/22 15:27: Diff Path Review Reviewed 04/01/22 08:22: Diff Path Review Reviewed 04/02/22 06:25: WBC 5.3, RBC 3.60 L, Hgb 12.7 L, Hct 37.7 L, MCV 104.7 H, MCH 35.3 H, MCHC 33.7, RDW Std Deviation 49.2 H, RDW Coeff of Blayne 12.6, Plt Count 39 L*, MPV 11.8, Immature Gran % (Auto) 0.400, Neut % (Auto) 60.2, Lymph % (Auto) 25.9, [place] % (Auto) 12.0 H, Eos % (Auto) 1.1, Baso % (Auto) 0.4, Absolute Neuts (auto) 3.2, Absolute Lymphs (auto) 1.36, Nucleated RBC % 0, Diff Path Review Reviewed, Atypical Lymphocytes 1+, Platelet Estimate MKD DEC, Macrocytosis 2+ 04/02/22 06:25: Sodium 135 L, Potassium 4.3, Chloride 104, Carbon Dioxide 25.0, Anion Gap 6, BUN 7, Creatinine 0.58 L, Estim Creat Clear Calc 178.77, Est GFR (MDRD) Af Amer 198, Est GFR (MDRD) Non-Af 164, BUN/Creatinine Ratio 12.1, Glucose 86, Calcium 9.0 Physical Exam Const alert, oriented x3 and no apparent distress HEENT head/scalp atraumatic, moist oral mucous membranes and oropharynx normal Head and Scalp: normocephalic Mouth: oral and palatal mucosa normal Eyes PERRL, EOMs intact bilaterally and conjunctivae normal Neck no lymphadenopathy, supple and no JVD Resp normal respiratory effort, no retractions, no use of accessory muscles and clear to auscultation bilaterally Cardio regular rate, regular rhythm, S1 normal heart sound, S2 normal heart sound and no murmurs GI normal to inspection, nondistended, normoactive bowel sounds, soft to palpation, non-tender and non-distended Extremity normal to inspection, full ROM and no clubbing, cyanosis or edema Neuro oriented x3, CN's II-XII intact bilaterally, moves all extremities and no focal motor deficits Neuro Narrative: tremors of upper extremities Sensorium / Orientation: awake and alert Motor Exam: strength 5/5 throughout Psych affect normal Assessment & Plan Assessment/Plan (1) Alcohol withdrawal: (2) Alcohol intoxication: (3) Thrombocytopenia: PLAN: Plan #Acute alcohol withdrawal * on alcohol withdrawal protocol with phenobarbital * monitor CIWA score * supportive meds for symptomatic relief * on thiamine, folic acid and multivites * #Pancytopenia * wbc has improved to 5.3, and Hb is 12.7 * likely due to chronic alcohol use * platelets now up to 39 from 35 yesterday. THis is chronic. WIll monitor * #Elevated liver enzymes * liver enzymes are chronically elevated. DVT prophylaxis: SCDs Charges/Coding Visit Charges Inpatient E&M: 38948 Subs Hosp L2
[2022-04-02] MEDS: Gabapentin 300 MG Capsule PO (20:03)
[2022-04-02 20:05] VITALS: BP 136/93; PULSE 80; RESP 16; TEMP 36.7; O2SAT 100
[2022-04-03] MEDS: hydrOXYzine PAM 25 MG Capsule 50 MG PO (01:24)
[2022-04-03] MEDS: Phenobarbital 32.4 MG Tablet 64.8 MG PO (01:24)
[2022-04-03 02:00] VITALS: BP 131/93; PULSE 73; RESP 16; TEMP 36.5; O2SAT 98
[2022-04-03 07:29] VITALS: BP 138/98; PULSE 88; RESP 18; TEMP 36.4; O2SAT 100
[2022-04-03 07:53] LABS: Absolute Lymphocyte Count 1.29 X10^3/uL (0.83-4.51); Absolute Neutrophil Count 2.8 X10^3/uL (2.0-7.7); Basophil# 0.04 X10^3/uL; Basophil% 0.8 % (0-1); Eosinophil# 0.09 X10^3/uL; Eosinophils% 1.8 % (0-5); Hematocrit 37.3 % (40-54); Hemoglobin 12.5 g/dL (13.0-16.5); Lymphocyte # 1.29 X10^3/ul (0.83-4.51); Lymphocyte % 26.2 % (19-41); Mean Corp Hgb Conc 33.5 g/dL (32-36); Mean Corpuscular Hgb 35.4 pg (27.0-32.0); Mean Corpuscular Volume 105.7 fL (80-94); Mean Platelet Vol. 12.4 fl (6.2-12.0); Monocyte# 0.69 X10^3/uL; NRBC Flagged by Analyzer 0 % (0-5); Neutrophil # 2.79 X10^3/uL (2.7-7.7); Neutrophil % 56.6 % (47-70); POSITIVE COUNT YES; RBC Distribution Width CV 12.4 % (11.6-14.6); RBC Distribution Width SD 48.2 fl (35.1-43.9); Red Blood Count 3.53 M/mm3 (4.6-6.2); White Blood Count 4.9 K/mm3 (4.4-11.0)
[2022-04-03 08:22] LABS: Anion Gap 8 (5-15); BUN 8 mg/dL (7-18); BUN/Creat Ratio 15.5 RATIO (10-20); Calcium,Total 8.6 mg/dL (8.5-10.1); Chloride 108 mmol/L (98-107); Creatinine, Serum 0.52 mg/dL (0.70-1.30); EST Glomerular Filtration Rate 187 mL/min (>60); Est Glom Filt Rate - Afr Amer 226 mL/min (>60); Glucose 81 mg/dL (74-106); Potassium 3.7 mmol/L (3.5-5.1); Sodium Level 138 mmol/L (136-145)
[2022-04-03 08:36] LABS: Differential Indicated SCAN CRITERIA MET; Platelet Count 48 K/mm3 (150-450)
[2022-04-03 09:12] LABS: Differential Comment SCANNED; Platelet Estimate MKD DEC (ADEQ)
--- NOTE | 2022-04-03 10:22 | DCINST_ITS ---
Discharge Instructions Diet Discharge Diet: Low fat / Low cholesterol Activity Discharge Activity: Return to Normal Activity Weight Bearing Status: Weight bearing as tolerated Dressing / Incision Call your doctor if you observe: Fever of 101 or Higher, Shortness of breath, Dizziness, Swelling in the ankles, Chest pain and Increased palpitations (irregular heartbeat) Follow Up Care Test Results: Test results from this visit will be discussed in further detail at your follow- up appointment, if applicable. Discharge Plan Admission Admit Date/Time: 03/31/22 16:37 Primary Reason for Your Visit: acute alcohol withdrawal Attending Provider: Janene Botello Primary Care Provider: Yakelin Singer,No Primary Consulting Providers: Nathan Le Instructions Patient Instructions: Alcohol Withdrawal: What to Expect, ED Withdrawal Alcohol Discharge Orders/Prescriptions Referrals / Follow Up: Care Physician,No Primary [Primary Care Provider] - Disposition Disposition (needs filled in before D/C Order can be placed): Home, Self Care
[2022-04-03 10:23] VITALS: BP 125/79; PULSE 69; RESP 18; TEMP 36.7; O2SAT 100
--- NOTE | 2022-04-03 10:23 | DS.PCM_ITS ---
Providers Date of Admission: 03/31/22 Date of Discharge: 04/03/22 Primary Care Physician: No Primary Care Phys Reason For Visit: ALCOHOL WITHDRAWAL Diagnosis Discharge Diagnosis (1) Alcohol withdrawal: Status: Acute Code(s): F10.939 - Alcohol use, unspecified with withdrawal, unspecified (2) Alcohol intoxication: Status: Acute Code(s): F10.929 - Alcohol use, unspecified with intoxication, unspecified (3) Thrombocytopenia: Status: Acute Code(s): D69.6 - Thrombocytopenia, unspecified Plan #Acute alcohol withdrawal * on alcohol withdrawal protocol with phenobarbital * monitor CIWA score * supportive meds for symptomatic relief * on thiamine, folic acid and multivites * #Pancytopenia * wbc has improved to 5.3, and Hb is 12.7 * likely due to chronic alcohol use * platelets now up to 39 from 35 yesterday. THis is chronic. WIll monitor * #Elevated liver enzymes * liver enzymes are chronically elevated. DVT prophylaxis: SCDs Hospital Course Operations None Procedures None Summary of Care Provided Minutes Spent on Discharge: 45 Hospital Course: Patient is a 41 y/o female with a PMH as outlined who was admitted for acute alcohol withdrawal. His last drink was at 1430 on the day of admission; he drinks a bottle of whisky every 2-3 days, and had associated tremors. HE hadnt done through any withdrawl program before,though he had tried detoxing on his ow n before. HE was admitted and managed for acute alcohol withdrawal. He was started on alcohol withdrawal protocol with phenobarbital. Labs showed thrombocytopenia, which was chronic. He tolerated 3 day detox process, and was discharged on 04/03/2022, and is to follow up with his PCP and addiction me sam on outpatient basis. Patient seen and examined prior to discharge. He had no active complaints and felt well enough to be discharged. Review of systems is otherwise negative. Labs and vitals reviewed. Home meds reviewed and reconciled. Physical Exam Const alert, oriented x3 and no apparent distress Constitutional Narrative: Appears older than stated age General Appearance: cooperative and comfortable Orientation / Consciousness: awake Exam Limitations: no limitations HEENT normocephalic, head/scalp atraumatic, hearing grossly normal bilaterally, moist oral mucous membranes and oropharynx normal Mouth: oral and palatal mucosa normal Eyes PERRL, EOMs intact bilaterally and conjunctivae normal Neck no lymphadenopathy, supple and no JVD Resp normal respiratory effort, no retractions, no use of accessory muscles and clear to auscultation bilaterally Cardio regular rate, regular rhythm, S1 normal heart sound, S2 normal heart sound and no murmurs GI normal to inspection, nondistended, normoactive bowel sounds, soft to palpation, non-tender and non-distended Extremity normal to inspection, full ROM and no clubbing, cyanosis or edema Skin no rashes or lesions noted Neuro oriented x3, CN's II-XII intact bilaterally, moves all extremities and no focal motor deficits Neuro Narrative: tremors have improved Sensorium / Orientation: awake and alert Motor Exam: strength 5/5 throughout Psych affect normal Weight / BMI Weight Weight: 166 lb 4 oz Body Mass Index (BMI) 22.5 ABG / Lab / Microbiology Data Result Diagrams: 04/03/22 06:25 04/03/22 06:25 Laboratory: Laboratory Results - last 24 hr 03/31/22 15:27: Diff Path Review Reviewed 04/01/22 08:22: Diff Path Review Reviewed 04/02/22 06:25: Diff Path Review Reviewed 04/03/22 06:25: WBC 4.9, RBC 3.53 L, Hgb 12.5 L, Hct 37.3 L, MCV 105.7 H, MCH 35.4 H, MCHC 33.5, RDW Std Deviation 48.2 H, RDW Coeff of Blayne 12.4, Plt Count 48 L*, MPV 12.4 H, Immature Gran % (Auto) 0.600, Neut % (Auto) 56.6, Lymph % (Auto) 26.2, [place] % (Auto) 14.0 H, Eos % (Auto) 1.8, Baso % (Auto) 0.8, Absolute Neuts (auto) 2.8, Absolute Lymphs (auto) 1.29, Nucleated RBC % 0, Differential Comment SCANNED, Diff Path Review May jessica, Platelet Estimate MKD 04/03/22 06:25: Sodium 138, Potassium 3.7, Chloride 108 H, Carbon Dioxide 22.0, Anion Gap 8, BUN 8, Creatinine 0.52 L, Estim Creat Clear Calc 199.40, Est GFR (MDRD) Af Amer 226, Est GFR (MDRD) Non-Af 187, BUN/Creatinine Ratio 15.5, Glucose 81, Calcium 8.6 D/C Instructions Discharge Diet: Low fat / Low cholesterol Discharge Activity: Return to Normal Activity Weight Bearing Status: Weight bearing as tolerated Call your doctor if you observe: Fever of 101 or Higher, Shortness of breath, Dizziness, Swelling in the ankles, Chest pain and Increased palpitations (irregular heartbeat) Meaningful Use Info Meaningful Use Diagnoses (Choose all that apply): None applicable Discharge Plan Admission Admit Date/Time: 03/31/22 16:37 Primary Reason for Your Visit: acute alcohol withdrawal Attending Provider: Janene Botello Primary Care Provider: Care Physician,No Primary Consulting Providers: Nathan Le Instructions Patient Instructions: Alcohol Withdrawal: What to Expect, ED Withdrawal Alcohol Discharge Orders/Prescriptions Referrals / Follow Up: Care Physician,No Primary [Primary Care Provider] - Disposition Disposition (needs filled in before D/C Order can be placed): Home, Self Care Charges/Coding Visit Charges Inpatient E&M: 51402 Disch Hosp
[2022-04-05 14:21] LABS: Pathologist Review Reviewed
== END 2022-04-03 10:33 | disposition home or self-care (01) | DRG 897 ==
LOC: ED 16:19 → MS3 16:54
PROVIDERS: Emergency Provider Emergency Medicine; Visit Provider Student in an Organized Health Care Education/Training Program
DX: F10.239 Alcohol dependence with withdrawal, unspecified (principal); D61.818 Other pancytopenia; D69.6 Thrombocytopenia, unspecified; F10.229 Alcohol dependence with intoxication, unspecified; F17.210 Nicotine dependence, cigarettes, uncomplicated; Y90.9 Presence of alcohol in blood, level not specified
CPT/HCPCS: 36415; 80048; 80053; 82077; 85025; 85610; 99281; 99406; A4216